=== PATIENT | female | born 1980 | race Caucasian/White ===

== ENCOUNTER → 2025-03-07 09:14 | Outpatient (REF) | payer BC, SELFPAY | LOC: HWRAD 09:14 | PROVIDERS: ATTENDING PHYSICIAN Nurse Practitioner Adult Health | DX: R10.32 Left lower quadrant pain (principal) | CPT/HCPCS: 76705 ==

== ENCOUNTER → 2025-03-27 12:38 | Outpatient (REF) | payer BC, SELFPAY | LOC: RAD 12:38 | PROVIDERS: ATTENDING PHYSICIAN Surgery; FAMILY PHYSICIAN Nurse Practitioner Adult Health | DX: K40.90 Unilateral inguinal hernia, without obstruction or gangrene, not specified as recurrent (principal) | CPT/HCPCS: 74177; Q9967 ==

== ENCOUNTER → 2025-04-05 10:41 | Outpatient (REF) | payer BC, SELFPAY | LOC: HWWDC 10:41 | PROVIDERS: ATTENDING PHYSICIAN Nurse Practitioner Adult Health | DX: Z12.31 Encounter for screening mammogram for malignant neoplasm of breast (principal) | CPT/HCPCS: 77063; 77067 ==

== ENCOUNTER 2025-04-28 06:28 | Day surgery (SDC) | payer BC, SELFPAY ==
[2025-04-14 09:39] LABS: Hematocrit 38.9 % (37.0-47.0); Hemoglobin 13.8 g/dL (12.0-16.0); Mean Corp Hgb Conc. 35.5 g/dL (33.0-37.0); Mean Corpuscular Volume 87.2 fL (81.0-99.0); Platelet Count 255 10^3/uL (130-400); Red Cell Dist. Width 12.5 % (11.5-14.5)
[2025-04-14 09:46] LABS: Blood Urea Nitrogen 18 mg/dl (7-17); Calcium 9.4 mg/dl (8.4-10.2); Carbon Dioxide 27 mmol/L (22-30); Chloride 104 mmol/L (98-107); Glucose 94 mg/dl (70-99); Potassium 4.3 mmol/L (3.5-5.1); Sodium 137 mmol/L (135-145); eGFR > 60.00
[2025-04-14 14:06] VITALS: BMI 32.6
[2025-04-28] VITALS (7 sets, daily range): BP systolic 106–143; BP diastolic 67–95; BMI 32.6
[2025-04-28] MEDS: TYLENOL 1000 MG PO (08:32)
[2025-04-28] MEDS: NORMOSOL-R/PLASMALYTE-A 1000 IV (08:35)
[2025-04-28] MEDS: ZOFRAN 4 MG IV (10:11)
[2025-04-28] MEDS: COMPAZINE 5 MG IV (10:20)
== END 2025-04-28 11:45 | disposition home or self-care (01) ==
LOC: SDS 06:28
PROVIDERS: ATTENDING PHYSICIAN Surgery; FAMILY PHYSICIAN Nurse Practitioner Adult Health
DX: K40.90 Unilateral inguinal hernia, without obstruction or gangrene, not specified as recurrent (principal); K43.2 Incisional hernia without obstruction or gangrene; Z98.890 Other specified postprocedural states
CPT/HCPCS: 49591; 36415; 80048; 85027; C1781